=== PATIENT | female | born 1975 | race Hispanic/Latino ===

== ENCOUNTER 2018-04-19 20:57 | Emergency (ER) | payer OTHER ==
[2018-04-19] MEDS ORDERED: Ibuprofen 800 MG TAB ONE (21:29)
--- NOTE | 2018-04-20 07:24 | RAD ---
RIGHT ANKLE 3 VIEWS: DATE: 04/19/2018. FINDINGS: No fracture or joint abnormality was seen. All bones appeared intact. A small area of cortical prom inence in the distal tibia posteriorly on the lateral view is likely not to be due to acute trauma. IMPRESSION: No acute finding. POS: HOME
--- NOTE | 2018-04-20 07:25 | RAD ---
RIGHT KNEE 4 VIEWS: DATE: 04/19/2018. FINDINGS: No fracture, dislocation, or joint effusion was seen. The articular surfaces are smooth. There may be some very minor medial joint space narrowing. IMPRESSION: No acute findings. POS: HOME
== END 2018-04-19 22:24 | disposition home or self-care (01) ==
LOC: BURERS 20:57
DX: S93.401A Sprain of unspecified ligament of right ankle, initial encounter (principal); S80.01XA Contusion of right knee, initial encounter; W01.0XXA Fall on same level from slipping, tripping and stumbling without subsequent striking against object, initial encounter